=== PATIENT | male | born 1940 | race Caucasian/White ===

== ENCOUNTER 2018-12-27 10:07 | Inpatient (IN) ==
--- NOTE | 2018-12-27 10:21 | Emergency Department Note ---
Disposition Clinical Impression: NSTEMI (non-ST elevated myocardial infarction) Disposition: Admitted As Inpatient Condition: Good Referrals: Maurice Arreaga MD [Primary Care Provider] - Time of Disposition: 11:37 General Adult HPI - General Stated complaint: chest pain Time Seen by Provider: 12/27/18 10:09 Source: patient, family Mode of arrival: wheelchair Limitations: no limitations Nursing Notes Reviewed: Yes Vital Signs Reviewed: Yes - History of Present Illness HPI Narrative: Kenneth is a 78-year-old male that presents the emergency department with reports of left-sided chest pain. Patient describes this as a muscle spasm that last only a couple of seconds. Patient states that this is been intermittent. Patient states he is not having any active chest pain. Patient states that it feels like a fluttering that is painful. Patient states that he does have a prior history of coronary bypass. Patient states that this was performed by Dr. Larose in 2012. Patient states that he has been doing well and has not had any issues. Patient denies any shortness of breath, nausea, diaphoresis or any other symptoms other than the sensation of fluttering and pain in the left side of his chest. Pain Scale: 0 - Related Data Allergies Allergy/AdvReac Type Severity Reaction Status Date / Time No Known Allergies Allergy Verified 12/27/18 10:19 All systems ED: reviewed and negative except as stated. Constitutional: Denies: fever Cardiovascular: Reports: chest pain, palpitations Respiratory: Denies: dyspnea Gastrointestinal: Denies: abdominal pain, nausea, vomiting Genitourinary: Denies: dysuria, frequency Musculoskeletal: Denies: back pain, neck pain Neurological: Denies: weakness, numbness, paresthesias Past Medical History - Past Medical History Medical history: Reports: diabetes, hyperlipidemia, hypertension Psychiatric history: Reports: no psych history - Social History Smoking Status: Never smoker Alcohol use: Reports: none Drug use: Reports: none Physical Exam - General Limitations: no limitations General appearance: alert, in no apparent distress - Head Head exam: atraumatic, normocephalic - Eye Eye exam: Present: normal appearance, EOMI - Neck Neck exam: Present: normal inspection, full ROM, trachea midline - Respiratory Respiratory exam: Present: normal lung sounds bilaterally. Absent: respiratory distress, wheezes - Cardiovascular Cardiovascular exam: Present: regular rate, normal rhythm, normal heart sounds, +S1, +S2 - Abdominal Exam Abdominal exam: Present: soft, Non-Tender, normal bowel sounds - Neurological Exam Neurological exam: Present: alert, oriented X3 - Psychiatric Psychiatric exam: Present: normal affect, normal mood - Skin Skin exam: Present: warm, dry, intact Course Vital Signs Temperature 97.5 F L 12/27/18 10:13 Pulse Rate 67 12/27/18 10:13 Respiratory Rate 20 12/27/18 10:13 Blood Pressure 159/72 12/27/18 10:13 O2 Sat by Pulse Oximetry 96 12/27/18 10:13 Temperature 97.5 F L 12/27/18 10:13 Pulse Rate 67 12/27/18 10:13 Respiratory Rate 20 12/27/18 10:13 Blood Pressure 159/72 12/27/18 10:13 O2 Sat by Pulse Oximetry 96 12/27/18 10:13 Oxygen Delivery Oxygen Delivery Room Air Medical Decision Making - MDM Narrative Medical decision making narrative: Due the patient reporting chest pain and a fluttering sensation we will obtain basic laboratory testing as well as chest x-ray and EKG. patient's laboratory testing is relatively unremarkable. EKG did not show any acute ischemic changes. Chest x-ray did not show any acute cardial pulmonary process. However due to the patient's prior medical history the patient will need to be admitted to the hospital for further evaluation and management. Patient did receive aspirin and nitroglycerin. Consultation hospice Dr. Jones and she has accepted the patient to their service. Chest X-Ray 12/27/18 10:11 IMPRESSION: No acute cardiopulmonary disease D/ / Edinson Santos MD / Edinson Santos MD Interpreting Provider: Edinson Santos MD 1122 hrs.: Patient's troponins positive no chest pain at this time. Were negative and bring him into the hospital make sure he got aspirin and then admit. He is in agreement with plan. 1136 hrs.: Hospitalist as accepted patient for admission. - Medical Records Medical records reviewed: Yes I reviewed the patient's medical records. - Lab Data Lab results reviewed: Yes I reviewed the patient's lab results. Result diagrams: 12/27/18 10:25 12/27/18 10:25 Lab Results 12/27/18 12/27/18 12/27/18 Range/Units 10:25 10:25 10:25 WBC 9.1 (4.3-11.1) K/mcL RBC 5.04 (4.19-5.50) M/mcL Hgb 14.3 (12.9-16.9) g/dL Hct 43.7 (37.5-50.1) % MCV 86.7 (83.0-100.0) fL MCH 28.4 (28.0-33.3) pg MCHC 32.7 (31.6-35.5) g/dL RDW 14.2 (11.5-14.5) % Plt Count 374 (140-400) K/mcL MPV 9.4 (9.4-12.4) fL Immature Gran % 0.4 (0-4) % Seg Neutrophils % 63.4 % Lymphocytes % 22.7 % Monocytes % 8.3 % Eosinophils % 4.2 % Basophils % 1.0 % Neutrophils # 5.8 (1.6-8.9) K/mcL Lymphocytes # 2.1 (0.6-4.6) K/mcL Monocytes # 0.8 (0.0-1.3) K/mcL Eosinophils # 0.4 (0.0-0.6) K/mcL Basophils # 0.1 (0.0-0.2) K/mcL APTT 39.5 H (26.0-36.0) Seconds Sodium (136-145) mEq/L Potassium (3.5-5.1) mEq/L Chloride (98-107) mEq/L Carbon Dioxide (23-29) mEq/L BUN (8-23) mg/dL Creatinine (0.70-1.30) mg/dL Est GFR ( Amer) (> 60) Est GFR (Non-Af Amer) (> 60) BUN/Creatinine Ratio (6-26) Glucose (70-105) mg/dL Calculated Osmolality (280-300) Calcium (8.6-10.3) mg/dL Troponin I (< 0.04) ng/mL TSH 0.545 (0.340-5.600) mcIU/mL 12/27/18 Range/Units 10:25 WBC (4.3-11.1) K/mcL RBC (4.19-5.50) M/mcL Hgb (12.9-16.9) g/dL Hct (37.5-50.1) % MCV (83.0-100.0) fL MCH (28.0-33.3) pg MCHC (31.6-35.5) g/dL RDW (11.5-14.5) % Plt Count (140-400) K/mcL MPV (9.4-12.4) fL Immature Gran % (0-4) % Seg Neutrophils % % Lymphocytes % % Monocytes % % Eosinophils % % Basophils % % Neutrophils # (1.6-8.9) K/mcL Lymphocytes # (0.6-4.6) K/mcL Monocytes # (0.0-1.3) K/mcL Eosinophils # (0.0-0.6) K/mcL Basophils # (0.0-0.2) K/mcL APTT (26.0-36.0) Seconds Sodium 135 L (136-145) mEq/L Potassium 3.9 (3.5-5.1) mEq/L Chloride 102 (98-107) mEq/L Carbon Dioxide 24 (23-29) mEq/L BUN 15 (8-23) mg/dL Creatinine 1.14 (0.70-1.30) mg/dL Est GFR ( Amer) > 60 (> 60) Est GFR (Non-Af Amer) > 60 (> 60) BUN/Creatinine Ratio 13 (6-26) Glucose 216 H (70-105) mg/dL Calculated Osmolality 287 (280-300) Calcium 9.0 (8.6-10.3) mg/dL Troponin I 0.07 H* (< 0.04) ng/mL TSH (0.340-5.600) mcIU/mL - Radiology Data Radiology results reviewed: Yes I reviewed the patient's radiology results. Chest X-Ray 12/27/18 10:11 IMPRESSION: No acute cardiopulmonary disease D/ / Edinson Santos MD / Edinson Santos MD Interpreting Provider: Edinson Santos MD - EKG Data EKG #1 EKG attestation: Yes I reviewed and interpreted this EKG. EKG results narrative: EKG shows a sinus rhythm rate is 66 beats from it, WA interval 172, QRS duration 93, QTC of 417. No evidence of STEMI and EKG. This is compared to previous EKG on 04/06/13. Attestation Statement - Attestation Attestation: This documentation is done with the assistance of Dragon dictation. Despite efforts made to ensure accuracy, there may be inaccuracies in distribution transformer assembler or spelling and typographical errors. I examined this patient and my medical decision-making was reviewed with the Resident Physician. I agree with the documented findings, disposition and treatment plan as described except to the extent set forth below. Patient was seen and evaluated by Dr. Norwood, I agree with their evaluation and management plan, I supervised care the patient's stay. Patient presents today with chest pain which he describes as more muscle spasm. He does have a history of CAD. No pain at this time. He is resting comfortably. Renagel cardiac workup on him and then reassess. He is in agreement with plan. I reviewed the residents documentation and agree with the residents assessment and plan of care. I have personally had face to face time with the patient. ( Brief History, Brief Exam, and MDM) I personally supervised and was present for the darden/critical portions of the following procedures completed by the resident: EKG was interpreted by the resident under my supervision, I agree with their interpretation.
[2018-12-27 10:49] LABS: Basophils # 0.1 K/mcL (0.0-0.2); Eosinophils # 0.4 K/mcL (0.0-0.6); Eosinophils % 4.2 %; Hematocrit 43.7 % (37.5-50.1); Hemoglobin 14.3 g/dL (12.9-16.9); Immature Granulocytes % 0.4 % (0-4); Lymphocytes # 2.1 K/mcL (0.6-4.6); Lymphocytes % 22.7 %; Mean Corpuscular HGB Conc 32.7 g/dL (31.6-35.5); Mean Corpuscular Hemoglobin 28.4 pg (28.0-33.3); Mean Corpuscular Volume 86.7 fL (83.0-100.0); Mean Platelet Volume 9.4 fL (9.4-12.4); Monocytes # 0.8 K/mcL (0.0-1.3); Monocytes % 8.3 %; Neutrophils # 5.8 K/mcL (1.6-8.9); Platelet Count 374 K/mcL (140-400); Red Blood Count 5.04 M/mcL (4.19-5.50); Red Cell Distribution Width 14.2 % (11.5-14.5); Segmented Neutrophils % 63.4 %; White Blood Count 9.1 K/mcL (4.3-11.1)
[2018-12-27 11:08] LABS: Troponin I 0.07 ng/mL (< 0.04)
[2018-12-27 11:14] LABS: BUN/Creatinine Ratio 13 (6-26); Blood Urea Nitrogen 15 mg/dL (8-23); Carbon Dioxide 24 mEq/L (23-29); Chloride 102 mEq/L (98-107); Glucose 216 mg/dL (70-105); Osmolality,Calculated 287 (280-300); Potassium 3.9 mEq/L (3.5-5.1); Sodium 135 mEq/L (136-145); eGFR For African Americans > 60 (> 60); eGFR For Non-African Americans > 60 (> 60)
[2018-12-27] MEDS ORDERED: *HR* Heparin 5,000 UNIT/ML VIAL IVP PRN ×2 (12:46)
[2018-12-27] MEDS ORDERED: *HR* Heparin 5,000 UNIT/ML VIAL IVP ONE (12:46)
[2018-12-27] MEDS ORDERED: Heparin 25,000 UNIT/250 ML D5W 25,000 UNIT/250 ML IV.SOLN IVC SCH (13:00)
--- NOTE | 2018-12-27 13:03 | Internal Med History&Physical ---
Date of Encounter: 12/29/18 Time of Encounter: 13:03 Internal Medicine - H&P: HPI Chief complaint: CP History of present illness: Mr. Johnston is a 78 year old male With best medical history of diabetes, hyperlipidemia, hypertension and prior coronary bypass in 2012 who presented to the emergency department with intermittent left sided chest pain that felt as muscular spasm Analysis completely resolved. The patient denied shortness of breath, orthopnea, palpitation, paroxysmal nocturnal dyspnea, progressive or numbness of lower extremity edema, nausea, diaphoresis, vomiting, diarrhea , fever and chills. An EKG was obtained and revealed no ischemic ST-T wave changes, troponin was mildly elevated. I spoke with Dr. Nur who recommended to start heparin drip and admitted the patient for further evaluation. Past Med Surg Social Fam HX - Past Medical History Medical history: diabetes, hyperlipidemia, hypertension Psychiatric history: no psych history - Social History Smoking Status: Never smoker Alcohol use: none Drug use: none Internal Medicine - H&P: Meds Metoprolol [Lopressor] 25 mg PO BID 12/27/18 [History] Dulaglutide [Trulicity] 0.75 mg SQ TU 12/28/18 [History] Lisinopril-HCTZ 20-12.5 [Prinzide 20-12.5] 1 tab PO QAM 12/28/18 [History] Aspirin 81 mg PO DAILY tab.chew 12/29/18 [Rx] Atorvastatin [Lipitor] 80 mg PO HS #30 tablet 12/29/18 [Rx] Clopidogrel [Plavix] 75 mg PO DAILY #30 tablet 12/29/18 [Rx] Allergy/AdvReac Type Severity Reaction Status Date / Time No Known Allergies Allergy Verified 12/28/18 09:32 All Systems PM: A 10-system review of systems was performed and is negative for pertinent findings except as documented above in the HPI. - Constitutional Vitals: Temp Pulse Resp BP Pulse Ox 97.5 F L 67 20 159/72 96 12/27/18 10:13 12/27/18 10:13 12/27/18 10:13 12/27/18 10:13 12/27/18 10:13 General appearance: Present: A&O X 3 Exam: . - Head Head exam: Present: atraumatic, normocephalic - Neck Neck exam general surgery: Present: supple, trachea midline. Absent: lymphadenopathy - Respiratory Respiratory exam: Present: CTAB. Absent: accessory muscle use, rales, rhonchi, wheezes - Cardiovascular Cardiovascular exam: Present: RRR, +S1, +S2. Absent: diastolic murmur, gallop, rubs, systolic murmur - GI/Abdominal GI/Abdominal exam: Present: normal bowel sounds, soft, no peritoneal signs. Absent: distended, tenderness - Extremities Exam Extremities exam: Present: warm, radial pulses palpable and symmetrical. Absent: calf tenderness, cyanotic, pedal edema Internal Med - H&P Results - Labs CBC & Chem 7: 12/28/18 04:35 12/29/18 06:19 Labs: Short CBC 12/27/18 Range/Units 10:25 WBC 9.1 (4.3-11.1) K/mcL Hgb 14.3 (12.9-16.9) g/dL Hct 43.7 (37.5-50.1) % Plt Count 374 (140-400) K/mcL Neutrophils # 5.8 (1.6-8.9) K/mcL BMP 12/27/18 10:25 Sodium 135 L Potassium 3.9 Chloride 102 Carbon Dioxide 24 BUN 15 Creatinine 1.14 Glucose 216 H Calcium 9.0 Cardiac Enzymes 12/27/18 Range/Units 10:25 Troponin I 0.07 H* (< 0.04) ng/mL - Impressions ITS Impressions Chest X-Ray 12/27/18 10:11 IMPRESSION: No acute cardiopulmonary disease D/ / Edinson Santos MD / Edinson Santos MD Interpreting Provider: Edinson Santos MD - Assessment and Plan (1) NSTEMI (non-ST elevated myocardial infarction) Status: Resolved Assessment and plan: Atypical Chest pain in the setting of history of coronary bypass, rule out coronary artery disease, troponin is mildly elevated, I spoke with Dr. Nur who suggested to start the patient heparin drip for possible NSTEMI and they will see the patient in consult DD *Muskuloskeletal CP - myofascial strain, costochondritis *GERD *Esophageal spasm *Pericarditis - unlikely *Pneumonia - no infiltrate on CXR PLAN: - cardiac enzymes x 2 q 8 hr - EKG now and in AM - ASA - O2 by NC to keep SpO2 greater than 92% - UA - Urine toxic screen - CBCD, BMP in AM - Fasting lipids - 2D Echo - Cardiology consult (2) Hypertension Status: Chronic Assessment and plan: We will continue home medication and continue to monitor blood pressure while inpatient and underwent chest regimen accordingly Qualifiers: Hypertension type: essential hypertension Qualified Code(s): I10 - Essential (primary) hypertension (3) Diabetes mellitus Status: Chronic Assessment and plan: The patient currently is not on any antidiabetic medication, blood glucose is elevated, start the patient on insulin sliding scale and obtain hemoglobin A1c. Qualifiers: Diabetes mellitus type: type 2 Diabetes mellitus intermediate project manager insulin use: without chcf use Diabetes mellitus complication status: with other specified complication Qualified Code(s): E11.69 - Type 2 diabetes mellitus with other specified complication (4) Hyperlipidemia Status: Acute Assessment and plan: We will continue home statin and obtain fasting lipid profile in a.m. Qualifiers: Hyperlipidemia type: unspecified Qualified Code(s): E78.5 - Hyperlipidemia, unspecified - Time Spent With Patient Total time spent is greater than 50% in coordination of care (as documented) at patient's floor/unit and/or counseling patient:
[2018-12-27 14:12] LABS: INR 1.1
[2018-12-27] MEDS ORDERED: Ondansetron 4 MG/2 ML VIAL IVP PRN (15:11)
[2018-12-27] MEDS ORDERED: Naloxone 0.4 MG/ML INJ IVP PRN (15:11)
[2018-12-28 05:13] LABS: Basophils # 0.1 K/mcL (0.0-0.2); Eosinophils # 0.5 K/mcL (0.0-0.6); Eosinophils % 5.6 %; Hematocrit 42.1 % (37.5-50.1); Hemoglobin 14.1 g/dL (12.9-16.9); Immature Granulocytes % 0.7 % (0-4); Lymphocytes # 2.1 K/mcL (0.6-4.6); Lymphocytes % 24.3 %; Mean Corpuscular HGB Conc 33.5 g/dL (31.6-35.5); Mean Corpuscular Hemoglobin 28.5 pg (28.0-33.3); Mean Corpuscular Volume 85.1 fL (83.0-100.0); Mean Platelet Volume 9.4 fL (9.4-12.4); Monocytes # 0.8 K/mcL (0.0-1.3); Monocytes % 9.2 %; Neutrophils # 5.2 K/mcL (1.6-8.9); Platelet Count 335 K/mcL (140-400); Red Blood Count 4.95 M/mcL (4.19-5.50); Red Cell Distribution Width 14.1 % (11.5-14.5); Segmented Neutrophils % 59.2 %; White Blood Count 8.7 K/mcL (4.3-11.1)
[2018-12-28 05:20] LABS: INR 1.1; Prothrombin Time 12.6 Seconds (9.4-12.1)
[2018-12-28 05:24] LABS: Activated Partial Thrombo Time 95.5 Seconds (26.0-36.0)
[2018-12-28 05:31] LABS: Alanine Aminotransferase 17 Units/L (7-52); Albumin 3.8 g/dL (3.5-5.7); Albumin/Globulin Ratio 1.5 (1.1-2.2); Alkaline Phosphatase 52 Units/L (34-104); Aspartate Amino Transferase 13 Units/L (13-39); BUN/Creatinine Ratio 12 (6-26); Bilirubin,Total 0.4 mg/dL (0.3-1.0); Blood Urea Nitrogen 13 mg/dL (8-23); Calcium 8.9 mg/dL (8.6-10.3); Carbon Dioxide 26 mEq/L (23-29); Chloride 102 mEq/L (98-107); Glucose 145 mg/dL (70-105); Magnesium 1.8 mg/dL (1.6-2.6); Osmolality,Calculated 285 (280-300); Phosphorous 3.1 mg/dL (2.7-4.5); Potassium 3.8 mEq/L (3.5-5.1); Sodium 136 mEq/L (136-145); Total Protein 6.4 g/dL (6.4-8.9); eGFR For African Americans > 60 (> 60); eGFR For Non-African Americans > 60 (> 60)
[2018-12-28 05:32] LABS: Chol/HDL Ratio 4.9 (0-4.9); Cholesterol 158 mg/dL (< 200); Globulin 2.6 g/dL (2.4-3.5); HDL Cholesterol 32 mg/dL (40-59); LDL Cholesterol,Calculated 75 mg/dL (0-99); Triglycerides 256 mg/dL (< 150)
[2018-12-28] MEDS ORDERED: Dextrose Gel 15 GM/37.5 ML TUBE PO PRN ×2 (06:18)
[2018-12-28] MEDS ORDERED: D5% in Water 1,000 ML IVC PRN (06:18)
[2018-12-28] MEDS ORDERED: *HR* Dextrose 50 % in Water (Syg) 50 ML SYRINGE IVP PRN (06:18)
--- NOTE | 2018-12-28 07:45 | Internal Med Progress Note ---
Hospitalist Progress Note - Encounter Date of Encounter: 12/28/18 Time of Encounter: 08:10 - Subjective Interval History: awake, pleasant, rn at bedside. no chest pain, pressure, sob, n/v or diaphoresis. He will have left heart cath today. He denies any concerns or needs at this time - Exam Vitals: Temp Pulse Resp BP Pulse Ox 98.7 F 81 14 142/74 92 12/28/18 05:17 12/28/18 05:17 12/28/18 05:17 12/28/18 05:17 12/28/18 05:17 Exam: gen- alert, awake,appears stated age cv- reg rate and rhythm, normal s1,s2, no murmurs appreciated, no le edema lungs- ctabl, no wheezing, rhonchi or crackles, normal resp effort abd- soft, non tender, non distended, + bs neuro- AAOx3, CN grossly intact - Assessment and Plan (1) NSTEMI (non-ST elevated myocardial infarction) Current Visit: Yes Status: Acute - Summary of Assessment and Plan Summary of Assessment and Plan: Mr Johnston is 78 M pmhx CAD s/p cABG 2012, HTN, HLD, DM who presented with chest pain. He is admitted for NSTEMI NSTEMI CAD s/p CABG Trop elevation 0.06s EKG noted to have no acute ischemic changes Echo EF 60%, Indeterminant DD, Mild to Mod AR, otherwise mild valvular disease Do not suspect PE as etiology as no tachycardia, tachypnea or hypoxia -cont asa + statin + BB + acei -cont hep gtt -appreciate cards input, for [facility] today DM- SSI, accu checks, rpn hypoglycemics HTN- meds as above -HLD- cont statin vte ppx hep gtt Internal Medicine: Result - Labs CBC & Chem 7: 12/28/18 04:35 12/28/18 04:35 Labs: Short CBC 12/27/18 12/28/18 Range/Units 10:25 04:35 WBC 9.1 8.7 (4.3-11.1) K/mcL Hgb 14.3 14.1 (12.9-16.9) g/dL Hct 43.7 42.1 (37.5-50.1) % Plt Count 374 335 (140-400) K/mcL Neutrophils # 5.8 5.2 (1.6-8.9) K/mcL BMP 12/27/18 12/28/18 10:25 04:35 Sodium 135 L 136 Potassium 3.9 3.8 Chloride 102 102 Carbon Dioxide 24 26 BUN 15 13 Creatinine 1.14 1.07 Glucose 216 H 145 H Calcium 9.0 8.9 Cardiac Enzymes 12/27/18 12/27/18 12/27/18 Range/Units 10:25 16:26 20:17 Troponin I 0.07 H* 0.07 H* 0.06 H* (< 0.04) ng/mL 12/28/18 Range/Units 04:35 Troponin I 0.06 H* (< 0.04) ng/mL Liver Function 12/28/18 Range/Units 04:35 Total Bilirubin 0.4 (0.3-1.0) mg/dL AST 13 (13-39) Units/L ALT 17 (7-52) Units/L Alkaline Phosphatase 52 (34-104) Units/L Albumin 3.8 (3.5-5.7) g/dL - ABG Interpretation ABG results: PT/INR, D-dimer PT 12.6 Seconds (9.4-12.1) H 12/28/18 04:35 - Impressions Impressions Chest X-Ray 12/27/18 10:11 IMPRESSION: No acute cardiopulmonary disease D/ / Edinson Santos MD / Edinson Santos MD Interpreting Provider: Edinson Santos MD Echocardiogram 12/27/18 14:10 Impressions: LVEF 60%. Indeterminate diastolic function. Normal right ventricular structure and function. Mild mitral regurgitation. Mild-moderate aortic regurgitation. Mild tricuspid regurgitation. Mild pulmonic regurgitation. No pulmonary hypertension. Left Ventricular Wall Motion: Rest Echo Findings All wall segments showed normal motion. Findings: Study Quality * Technically adequate exam. ECG Findings * Normal sinus rhythm. Left Ventricle * LVEF 60%. * Normal LV chamber size, wall thickness and function. * Indeterminate diastolic function. Right Ventricle * Normal right ventricular structure and function. Left Atrium * Mildly dilated left atrium. Right Atrium * Normal right atrial size. Mitral Valve * Normal mitral valve structure. * No mitral stenosis. * Mild mitral regurgitation. Aortic Valve * Trileaflet aortic valve. * Mildly thickened aortic valve leaflets. * Mild-moderate aortic regurgitation. Tricuspid Valve * Normal tricuspid valve structure. * Mild tricuspid regurgitation. Pulmonic Valve * Pulmonic valve is not well visualized. * No pulmonic stenosis. * Mild pulmonic regurgitation. Pulmonary Artery * Pulmonary artery not well visualized. Aorta * Normally sized aortic root. * Proximal ascending thoracic aorta not optimally visualized. Pericardium * There is no pericardial effusion present. Interatrial Septum * Interatrial septum not well evaluated. IVC * The IVC is not well evaluated. Consult Discharge Plan - Plan Referrals: Maurice Arreaga MD [Primary Care Provider] -
[2018-12-28] MEDS: Insulin LISPRO 300 UNITS/3 ML VIAL SQ SCH ×3 (07:49→16:25)
[2018-12-28] MEDS: Lisinopril 20 MG TABLET PO SCH (08:35)
--- NOTE | 2018-12-28 10:27 | Cardiology Consult Note ---
Date of Encounter: 12/28/18 Time of Encounter: 10:24 Assessment and Plan (1) NSTEMI (non-ST elevated myocardial infarction) Current Visit: Yes Status: Acute Presented to the ED with intermittent left sided chest pain that felt as muscular spasm, brief in duration with no alleviating or exacerbating factors. Pt denies any associated symptoms. Reports he had 3 episodes--one Thursday, Thursday and Thursday. Troponins 0.07, 0.07, 0.06, 0.06. No ischemic ECG changes. No other underlying cause able to be identified for troponin elevation. TTE EF 60%, mild MR, mild-moderate AR, mild TR and OK. On heparin gtt, statin and BB. Will start ASA. Discussed and reviewed with Dr. Nur. Recommend [facility]. R/B/A discussed. Pt agrees to proceed. [facility] today. (2) CAD (coronary artery disease) Current Visit: Yes Status: Acute Hx CABG in 2012 (DIETRICH-LAD, SVG-OM1 and OM3, SVG to PDA). ASA, Statin, BB. Plan as above. Qualifiers: Coronary Disease-Associated Artery/Lesion type: [place] artery [place] vs. transplanted heart: [place] heart Associated angina: angina presence unspecified Qualified Code(s): I25.10 - Atherosclerotic heart disease of [place] coronary artery without angina pectoris Discussion w patient/family: The assessment and plan as outlined above was discussed with the patient and/or family members who expressed understanding and agreement. All questions were answered. Thank you for involving us in the care of your patient. Please call with any questions. I will discuss all the above with Dr. Nur and make changes as necessary. History of Present Illness Consult date: 12/28/18 Consult reason: chest pain, elevated troponin Chief complaint: chest pain History of present illness: Mr. Johnston is a 78 year old male with PMH of diabetes, HLD, HTN and CAD s/p CABG in 2012 who presented to the ED with intermittent left sided chest pain that felt as muscular spasm, brief in duration with no alleviating or exacerbating factors. Pt denies any associated symptoms. Reports he had 3 episodes--one Thursday, Thursday and Thursday. Troponins 0.07, 0.07, 0.06, 0.06. Cardiology consulted for further recs. TTE EF 60%, mild MR, mild-moderate AR, mild TR and OK. Past Med Surg Social Fam HX - Past Medical History Medical history: coronary artery disease, diabetes, hyperlipidemia, hypertension Psychiatric history: no psych history - Past Surgical History Surgical History: coronary bypass (CABG) - Social History Smoking Status: Never smoker Alcohol use: none Drug use: none Medications and Allergies Aspirin [Adult Aspirin] 81 mg PO QAM 12/27/18 [History] Metoprolol [Lopressor] 25 mg PO BID 12/27/18 [History] Pravastatin Sodium [Pravachol] 20 mg PO QPM 12/27/18 [History] Dulaglutide [Trulicity] 0.75 mg SQ TU 12/28/18 [History] Lisinopril-HCTZ 20-12.5 [Prinzide 20-12.5] 1 tab PO QAM 12/28/18 [History] Allergy/AdvReac Type Severity Reaction Status Date / Time No Known Allergies Allergy Verified 12/28/18 09:32 All Systems Review: The remainder of the systems were reviewed and are negative - Cardiovascular Cardiovascular: as per HPI, chest pain at rest Physical Examination Vital Signs, Last 4 Hours Temp Pulse Resp BP Pulse Ox 12/28/18 07:54 98.1 F 75 12 144/83 92 Vital Signs Temp Pulse Resp BP Pulse Ox 12/28/18 07:54 98.1 F 75 12 144/83 92 12/28/18 05:17 98.7 F 81 14 142/74 92 12/27/18 22:14 98.7 F 68 16 132/64 95 12/27/18 16:29 98.5 F 71 18 147/70 98 12/27/18 14:39 98.1 F 65 18 143/76 97 12/27/18 13:41 64 14 141/71 97 Intake and Output 12/27/18 12/28/18 12/28/18 23:59 07:59 15:59 Intake Total 565 / 565 141.7 / 141.7 Output Total 0 / 0 Balance 565 / 565 141.7 / 141.7 Intake: IV Fluids 81.7 / 81.7 Heparin 25,000 UNIT/250 ML D5W 81.7 / 81.7 25,000 unit In 250 ml @ 11 UNIT /KG/HR 9.67 mls/hr IVC .Q24H [facility] Rx#:[id number] Oral 480 / 480 60 / 60 Output: Urine 0 / 0 Other: Meal Dinner npo Percent of Meal Consumed 100% # Voids 2 Weight 83.5 kg Blood Glucose* 126 127 Patient Weight 12/28/18 23:59 Weight 83.5 kg General: Conversant, No Apparent Distress HEENT: Atraumatic, Normocephaly, Mucus Membranes Moist Neck: No JVD, Normal carotid pulses Cardiac: Reg Rate and Rhythm, Normal S1 and S2, No Murmur Lungs: Normal Breath Sounds, No Wheeze, Rales, Rhonchi Neuro: Alert and responsive, No focal deficits noted Abdomen: Soft, Non-Tender Skin: No rashes noted on visualized skin Musculoskeletal: No Chest Wall Tenderness Extremities: No Clubbing, No Cyanosis, No Edema, Normal Pulses Results 12/28/18 04:35 12/28/18 04:35 Lab Results 12/27/18 12/27/18 12/27/18 10:25 10:25 10:25 WBC 9.1 Hgb 14.3 Hct 43.7 Plt Count 374 INR APTT 39.5 H Sodium Potassium Chloride Carbon Dioxide BUN Creatinine Glucose Calcium Magnesium Total Bilirubin AST ALT Alkaline Phosphatase Troponin I TSH 0.545 12/27/18 12/27/18 12/27/18 10:25 13:38 16:26 WBC Hgb Hct Plt Count INR 1.1 APTT Sodium 135 L Potassium 3.9 Chloride 102 Carbon Dioxide 24 BUN 15 Creatinine 1.14 Glucose 216 H Calcium 9.0 Magnesium Total Bilirubin AST ALT Alkaline Phosphatase Troponin I 0.07 H* 0.07 H* TSH 12/27/18 12/28/18 12/28/18 20:17 04:35 04:35 WBC 8.7 Hgb 14.1 Hct 42.1 Plt Count 335 INR APTT Sodium Potassium Chloride Carbon Dioxide BUN Creatinine Glucose Calcium Magnesium Total Bilirubin AST ALT Alkaline Phosphatase Troponin I 0.06 H* 0.06 H* TSH 12/28/18 12/28/18 04:35 04:35 WBC Hgb Hct Plt Count INR 1.1 APTT 95.5 H D Sodium 136 Potassium 3.8 Chloride 102 Carbon Dioxide 26 BUN 13 Creatinine 1.07 Glucose 145 H Calcium 8.9 Magnesium 1.8 Total Bilirubin 0.4 AST 13 ALT 17 Alkaline Phosphatase 52 Troponin I TSH Short CBC 12/28/18 12/27/18 Range/Units 04:35 10:25 WBC 8.7 9.1 (4.3-11.1) K/mcL Hgb 14.1 14.3 (12.9-16.9) g/dL Hct 42.1 43.7 (37.5-50.1) % Plt Count 335 374 (140-400) K/mcL Neutrophils # 5.2 5.8 (1.6-8.9) K/mcL BMP 12/28/18 12/27/18 Range/Units 04:35 10:25 Sodium 136 135 L (136-145) mEq/L Potassium 3.8 3.9 (3.5-5.1) mEq/L Chloride 102 102 (98-107) mEq/L Carbon Dioxide 26 24 (23-29) mEq/L BUN 13 15 (8-23) mg/dL Creatinine 1.07 1.14 (0.70-1.30) mg/dL Glucose 145 H 216 H (70-105) mg/dL Calcium 8.9 9.0 (8.6-10.3) mg/dL Cardiac Enzymes 12/28/18 12/27/18 12/27/18 Range/Units 04:35 20:17 16:26 Troponin I 0.06 H* 0.06 H* 0.07 H* (< 0.04) ng/mL 12/27/18 Range/Units 10:25 Troponin I 0.07 H* (< 0.04) ng/mL Liver Function 12/28/18 Range/Units 04:35 Total Bilirubin 0.4 (0.3-1.0) mg/dL AST 13 (13-39) Units/L ALT 17 (7-52) Units/L Alkaline Phosphatase 52 (34-104) Units/L Albumin 3.8 (3.5-5.7) g/dL Impressions Chest X-Ray 12/27/18 10:11 IMPRESSION: No acute cardiopulmonary disease D/ / Edinson Santos MD / Edinson Santos MD Interpreting Provider: Edinson Santos MD Echocardiogram 12/27/18 14:10 Impressions: LVEF 60%. Indeterminate diastolic function. Normal right ventricular structure and function. Mild mitral regurgitation. Mild-moderate aortic regurgitation. Mild tricuspid regurgitation. Mild pulmonic regurgitation. No pulmonary hypertension. Left Ventricular Wall Motion: Rest Echo Findings All wall segments showed normal motion. Findings: Study Quality * Technically adequate exam. ECG Findings * Normal sinus rhythm. Left Ventricle * LVEF 60%. * Normal LV chamber size, wall thickness and function. * Indeterminate diastolic function. Right Ventricle * Normal right ventricular structure and function. Left Atrium * Mildly dilated left atrium. Right Atrium * Normal right atrial size. Mitral Valve * Normal mitral valve structure. * No mitral stenosis. * Mild mitral regurgitation. Aortic Valve * Trileaflet aortic valve. * Mildly thickened aortic valve leaflets. * Mild-moderate aortic regurgitation. Tricuspid Valve * Normal tricuspid valve structure. * Mild tricuspid regurgitation. Pulmonic Valve * Pulmonic valve is not well visualized. * No pulmonic stenosis. * Mild pulmonic regurgitation. Pulmonary Artery * Pulmonary artery not well visualized. Aorta * Normally sized aortic root. * Proximal ascending thoracic aorta not optimally visualized. Pericardium * There is no pericardial effusion present. Interatrial Septum * Interatrial septum not well evaluated. IVC * The IVC is not well evaluated. Active Medications Dextrose/Water (Dextrose 50% (Syg)) 25 ml IVP AD PRN PRN Reason: Hypoglycemia Stop: 06/29/19 06:19 Glucagon (Glucagen) 1 mg IM ONCE PRN PRN Reason: Hypoglycemia Stop: 06/29/19 06:19 Glucose (Gluctose) 15 gm PO ONCE PRN PRN Reason: Hypoglycemia Stop: 06/29/19 06:19 Glucose (Gluctose) 30 gm PO ONCE PRN PRN Reason: Hypoglycemia Stop: 06/29/19 06:19 Heparin Sodium (Porcine) (Heparin) 4,000 unit IVP Q6HR PRN PRN Reason: SEE COMMENTS Stop: 06/28/19 12:47 Heparin Sodium (Porcine) (Heparin) 2,000 unit IVP Q6H PRN PRN Reason: SEE COMMENTS Stop: 06/28/19 12:47 Last Admin: 12/27/18 22:35 Dose: 2,000 unit Documented by: Heparin Sodium/Dextrose (Heparin 25,000 Unit/250 Ml D5w) 25,000 unit in 250 mls @ 9.67 mls/hr IVC .Q24H [facility]; Protocol Stop: 06/28/19 13:01 Last Titration: 12/28/18 05:41 Dose: 12.97 unit/kg/hr, 11.4 mls/hr Documented by: Dextrose (Dextrose 5%) 1,000 mls @ 100 mls/hr IVC .Q10H PRN PRN Reason: HYPOGLYCEMIA Stop: 06/29/19 06:19 Insulin Human Lispro (Humalog) 0 units SQ HS [facility]; Protocol Stop: 06/29/19 21:01 Insulin Human Lispro (Humalog) 0 units SQ TIDAC [facility]; Protocol Stop: 06/29/19 07:31 Last Admin: 12/28/18 07:49 Dose: Not Given Documented by: Lisinopril (Zestril) 20 mg PO DAILY [facility]; Protocol Stop: 06/29/19 09:01 Last Admin: 12/28/18 08:35 Dose: 20 mg Documented by: Metoprolol Tartrate (Lopressor) 25 mg PO BID [facility] Stop: 06/29/19 09:01 Last Admin: 12/28/18 08:35 Dose: 25 mg Documented by: Naloxone HCl (Narcan) 0.4 mg IVP Q2MPRN PRN PRN Reason: SEE COMMENTS Stop: 06/28/19 15:12 Ondansetron HCl (Zofran) 4 mg IVP Q8HR PRN PRN Reason: Nausea And Vomiting Stop: 06/28/19 15:12 Simvastatin (Zocor) 10 mg PO DAILY [facility] Stop: 06/29/19 09:01 Last Admin: 12/28/18 08:35 Dose: 10 mg Documented by: - Imaging and Cardiology Echo: report reviewed - EKG Interpretation EKG results cardiology: personally reviewed, other (12 hr tele AVG HR 70, SR, no significant pauses or arrhythmias noted.) Consult Discharge Plan - Plan Referrals: Maurice Arreaga MD [Primary Care Provider] -
[2018-12-28] MEDS ORDERED: Heparin 1,000 UNITS/500 mL 500 ML ONE (10:48)
[2018-12-28] MEDS ORDERED: *HR* Heparin 10,000 UNIT/10 ML VIAL ONE (10:48)
[2018-12-28] MEDS ORDERED: 0.9 % Sodium Chloride 1,000 ML ONE ×2 (10:48)
[2018-12-28] MEDS ORDERED: ISOVUE-370 200 ML INFUS..BTL ONE ×2 (10:48→12:00)
[2018-12-28] MEDS ORDERED: Nitroglycerin 1,000 MCG/10 ML VIAL IV ONE ×2 (10:48→10:54)
--- NOTE | 2018-12-28 11:04 | Pre-Sedation Evaluation ---
Pre-sedation evaluation - Pre-sedation checklist Date of procedure: 12/28/18 Procedure: [facility] Recent Vitals: Last Vital Signs Temp 98.1 F 12/28/18 07:54 Pulse 75 12/28/18 07:54 Resp 12 12/28/18 07:54 BP 144/83 12/28/18 07:54 Pulse Ox 92 12/28/18 07:54 H&P (including ROS) documented in medical record: Yes Previous reaction to sedatives/anesthetics: No Dietary Status: NPO after Midnight Airway Assessment: Patient can open mouth completely, TMJ function normal, Micrognathia (under-bite, receding chin) absent, Neck with adequate range of mot ion Dentition: No loose teeth or bridges Possible difficult airway: No ASA Classification *see protocol: CLASS II-Mild systemic disease Plan of Care: Pt appropriate candidate for procedure/moderate/conscious sedation, Risks/benefits of procedure/sedation discussed w/ patient/family Cardiac Registry (Cardio Only) - Functional Capacity Functional Capacity: < 4 METS - Clincal Frailty Scale Clinical Frailty Scale: Vulnerable
[2018-12-28] MEDS ORDERED: *HR* FentaNYL (PF) 100 MCG/2 ML VIAL ONE (11:33)
[2018-12-28] MEDS ORDERED: *HR* Midazolam HCl 2 MG/2 ML VIAL ONE (11:33)
[2018-12-28] MEDS ORDERED: *HR* Bivalirudin 250 MG VIAL IVC ONE (11:50)
[2018-12-28] MEDS ORDERED: *HR* Ticagrelor 90 MG TABLET ONE (12:05)
[2018-12-28] MEDS ORDERED: Nitroglycerin 0.4 MG TAB.SUBL SL PRN (12:42)
--- NOTE | 2018-12-28 13:46 | Electrocardiograph Report ---
[facility] [employer] [facility] Test Date: 2018-12-27 Pat Name: Kennedy Johnston Department: [id number] Room: 2NE29 Gender: M [employer]: : 1940 Requested By: Emeka Wasserman Order Number: [id number] Reading MD: Carmelo Clay Measurements Intervals [place] Rate: 66 P: 30 TX: 172 QRS: 7 QRSD: 93 T: 57 QT: 398 QTc: 417 Interpretive Statements Sinus rhythm Electronically Signed On 12-28-2018 13:44:56 EDT by Carmelo Clay
[2018-12-28] MEDS: *HR* Heparin 5,000 UNIT/ML VIAL SQ SCH ×2 (16:25→21:02)
[2018-12-28] MEDS: Aspirin 81 MG TAB.CHEW PO SCH (16:25)
--- NOTE | 2018-12-28 16:28 | Invasive Diagnostic Lab Proc ---
Name: Kennedy Johnston Date of Study: 12/28/2018 Date: 1940 Ht: 66.9in Medical Record#: [id number] Age: 78 Wt: 185.19lb Gender: Male BSA: 1.96 Order #: [id number] BMI: 29.07 Physicians Procedure Physician: Luz Stern MD, FACC Referring MD: Referring MD: Staff Name Position Time In Surinder Humphries RN Cardiology Fellow 10:56 AM Mary Parks RT (R) Scrub 10:56 AM Luz Bob RT (R) Scrub 10:56 AM Lizette Winslow RN Monitor 11:12 AM Procedures Performed Procedure L HRT ART/GRFT ANGIO PRQ CARD IRVING STENT W/ANGIO 1 VSL Pre-Procedure Checklist Informed consent is complete signed and on chart. H&P is on chart. ID band is on and ID verified with patient. Patient NPO for procedure The procedure was described for the patient and questions were answered. ECG is on chart. Plan of Care Patient will tolerate the procedure without complications. Adequate level of comfort will be maintained. Hemodynamics will remain stable Patient will recover from procedure without complications. Respiratory function will be maintained. Cardiac rhythm will remain stable. Patient temperature will be maintained. Patient and/or family have verbalized understanding of the procedure. Patient Education Chief Complaint/Reason for Test: Cardiac Cath Developmental Category: Geriatric (65+ years) Developmentally Appropriate for Age: Yes Learning Barriers: None Education Needs: Procedure Education Method: Verbal Information Taught: Cardiac Cath Educational Evaluation: Able to repeat information Intravenous Access Time IV Size Location DC'd Fluid/Drip Rate Units RN 11:34 AM 20g 1 07/02" Patent On Arrival Rt Antecubital 0.9NaCl 30 ml/hr Surinder Humphries RN Allergies No Known Allergies Vital Signs Time BP (mmHg) HR (bpm) O2 Sat. RR (bpm) LOC 11:28 AM / % 5 = Fully awake and oriented or at pre-proc level 11:28 AM / % 4 = Oriented but drowsy 11:43 AM / % 4 = Oriented but drowsy 11:58 AM / % 4 = Oriented but drowsy 11:34 AM 161 / 83 65 97 % 30 11:39 AM 124 / 66 63 96 % 14 11:44 AM 124 / 68 62 95 % 13 11:49 AM 128 / 63 63 96 % 20 11:54 AM 120 / 67 68 96 % 12 11:59 AM 119 / 65 61 96 % 13 12:04 PM 122 / 63 61 97 % 13 12:09 PM 128 / 69 61 93 % 11 12:14 PM 118 / 62 61 94 % 15 12:29 PM 122 / 80 58 97 % 16 12:50 PM 126 / 74 58 97 % 14 5 = Fully awake and oriented or at pre-proc level 01:00 PM 137 / 75 60 99 % 15 5 = Fully awake and oriented or at pre-proc level 01:15 PM 153 / 80 63 99 % 16 5 = Fully awake and oriented or at pre-proc level 01:36 PM 146 / 81 61 99 % 16 5 = Fully awake and oriented or at pre-proc level 01:47 PM 143 / 79 62 98 % 12 5 = Fully awake and oriented or at pre-proc level 02:00 PM 152 / 82 64 100 % 14 5 = Fully awake and oriented or at pre-proc level 02:15 PM 131 / 72 63 98 % 16 5 = Fully awake and oriented or at pre-proc level 02:30 PM 131 / 75 65 99 % 15 5 = Fully awake and oriented or at pre-proc level 02:50 PM 152 / 80 64 97 % 15 5 = Fully awake and oriented or at pre-proc level 03:00 PM 135 / 73 65 97 % 18 5 = Fully awake and oriented or at pre-proc level 03:15 PM 156 / 76 65 99 % 18 5 = Fully awake and oriented or at pre-proc level 03:30 PM 175 / 93 68 99 % 18 5 = Fully awake and oriented or at pre-proc level 03:45 PM 168 / 83 68 97 % 18 5 = Fully awake and oriented or at pre-proc level Procedural Medications Time Medication Dose Units Method Given By 11:27 AM Oxygen 2 L/min nasal cannula Surinder Humphries RN 11:37 AM Versed 2 mg Intravenous Surinder Humphries RN 11:37 AM Fentanyl 50 mcg Intravenous Surinder Humphries RN 11:41 AM Lidocaine 2% 20 ml Subcutaneous Luz Stern MD, FACC 11:58 AM Angiomax 0.75mg/kg bolus: 13 ml Intravenous Surinder Humphries RN 12:09 PM Nitroglycerin 200 mcg Intracoronary Luz Stern MD, FACC 12:10 PM Nitroglycerin 100 mcg Intracoronary Luz Stern MD, FACC 11:59 AM Angiomax 1.75mg/kg/hr: 30 ml/hr Intravenous Surinder Humphries RN 12:18 PM Brilinta 180 mg Orally Surinder Humphries RN ASA Classification: CLASS II- Mild systemic disease (i.e. well-controlled diabetes, hypertension, asthma, cigarette smoking) [place] Score Preprocedure Postprocedure Activity 2- Moves 4 extremities sustained head lift Activity 2- Moves 4 extremities sustained head lift Circulation 2- SBP +/= 20 points of pre-anesthetic level Circulation 2- SBP +/= 20 points of pre-anesthetic level Consciousness 2- Awake and alert oriented x 3 Consciousness 2- Awake and alert oriented x 3 O2 Saturation 2- Able to maintain O2 satruation of 92% on room air O2 Saturation 2- Able to maintain O2 satruation of 92% on room air Respiratory 2- Able to deep breathe and cough well Respiratory 2- Able to deep breathe and cough well Total Score 10 Total Score 10 Contrast Agent: Isovue Diagnostic Contrast: 135 ml Total Contrast: 135 ml Fluoro Dose: 58 mGy Procedure Log Time Note Enter By 10:56 AM Surinder Humphries RN Position: Cardiology Fellow Time in: 10:56 [facility] 10:56 AM Mary Parks RT (R) Position: Scrub Time in: 10:56 [facility] 10:56 AM Luz Bob RT (R) Position: Scrub Time in: 10:56 [facility] 11:10 AM 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 well-controlled diabetes, hypertension, asthma, cigarette smoking) [facility] 11:27 AM Physician arrived 11:27 [facility] 11:27 AM Meet and greet completed 11:27 AM Sign in performed according to hospital policy. Informed consent was obtained. [facility] 11:27 AM Procedure start 11:27 [facility] 11:27 AM Patient charges- Angio tray pack, Navilyst 3mm J, Pulse Oximetry and ACIST tubing and transducer 11:27 AM Case Delayed No mm 11:27 AM CathStat 11: AM Time: : Oxygen on at 2 L/min per nasal cannula [facility] : AM Time: Patient comfortable and pain free: Yes : AM Time: :LOC: 5 = Fully awake and oriented or at pre-proc level [facility] 11:33 AM Vitals capture started with the following parameters, Patient=Adult, Interval=5 min, Initial Oczwbrwv=367 mmHg, Deflation Rate=3 mmHg, Cuff placed on Right Arm 11:33 AM Recorded ECG: HR=64 Condition=Condition 1 11:33 AM Hair removed from procedure site in procedure lab using clippers. Bilateral groin prepped with Chloraprep by Mary Parks), then patient was draped. Skin intact. 11:34 AM HR=65 bpm, EHYH=526/83 mmhg, SpO2=97.0 %, Resp=30 B/min 11:37 AM Time: 11:37 Versed 2 mg Intravenous [facility] AM Time: 11:37 Fentanyl 50 mcg Intravenous [facility] 11:37 AM Time out was performed according to hospital policy. Conscious sedation and anesthesia was achieved (see medication log with in this report above) 11:38 AM Pressure channel 1 zero failed. 11:38 AM Pressure channel 1 zero failed. 11:38 AM Pressure channel 1 zeroed. 11:39 AM HR=63 bpm, RBRW=960/66 mmhg, SpO2=96.0 %, Resp=14 B/min 11: AM Time: : 20 ml Lidocaine 2% to right groin Subcutaneous Given by Luz Stern MD, [facility] 11:41 AM Coronary Dominance: right [facility] 11:42 AM Access obtained by percutaneous puncture. 5Fr 10cm Terumo Hobbs sheath placed in right Femoral artery. [id number] [facility] 11:42 AM 0.035 145cm Navilyst 3mmJ wire [id number] [facility] 11:42 AM 5Fr FR 4 catheter inserted over the wire [facility] 11:43 AM Time: Patient comfortable and pain free: Yes tsoummers 11:43 AM Time: :28LOC: 4 = Oriented but drowsy tsoummers 11:43 AM wire removed tsoummers 11:44 AM HR=62 bpm, DPSU=984/68 mmhg, SpO2=95.0 %, Resp=13 B/min, EtCO2=35 mmHg 11:44 AM RCA angiography performed in multiple views. tsoummers 11:44 AM Recorded Pressure: Ao, HR=63, Condition=Condition 1 (Aorta) Ao 97/63/79 11:45 AM Recorded Pressure: Ao, HR=61, Condition=Condition 1 (Aorta) Ao 97/60/79 11:45 AM SVG to the 1st OM and 3rd OM angio performed in multiple views. tsoummers 11:46 AM 0.035 260cm Navilyst 3mmJ wire [id number] [facility] 11:[facility] AM [facility]ter [facility] 11:47 AM 5Fr FL 4 catheter inserted over the wire [facility] 11:47 AM wire removed tsoummers 11:48 AM Recorded Pressure: Ao, HR=63, Condition=Condition 1 (Aorta) Ao 92/44/65 11:49 AM HR=63 bpm, LLAH=624/63 mmhg, SpO2=96.0 %, Resp=20 B/min 11:49 AM LCA angiography performed in multiple views. tsoummers 11:50 AM [facility] 11[facility]52 AM 5Fr IM catheter inserted over the wire [id number] [facility] 11:52 AM Left KWADWO to the LAD angio performed in multiple views. tsoummers 11:52 AM Recorded Pressure: Ao, HR=73, Condition=Condition 1 (Aorta) Ao 95/65/80 11:53 AM [facility]ter [facility] 11:53 AM 5Fr Pigtail catheter inserted over the wire [facility] 11:54 AM HR=68 bpm, SPQZ=115/67 mmhg, SpO2=96.0 %, Resp=12 B/min 11:54 AM Catheter crossed the aortic valve and was selectively placed in the left ventricle. Pressures recorded on pullback for left heart catheterization. tsoummers 11:54 AM Lesion found in Mid RCA. Pre Stenosis: 99 Pre CAITLIN Flow: 1: Slow Penetration without Perfusion tsoummers 11:55 AM Bolus angiogram of left Ventricle complete: 8 ml/sec for a total of 24 mls [facility] 11:55 AM Pressure channel 1 zeroed. 11:55 AM Right Coronary, Right Posterior Descending Arteries with Right Posterolateral and Acute Marginal branches with 99 % stenosis. If graft is supplying this area, 0 % stenosis [facility] 11:55 AM Recorded Pressure: LV, HR=65, Condition=Condition 1 (Left Ventricle) LV 111/-10/5 11:56 AM Recorded Pressure: LV, Ao, HR=66, Condition=Condition 1 (Left Ventricle) LV 93/23/29, (Aorta) Ao 90/57/76 11:56 AM Catheter removed [facility] 11:56 AM Inflation device was opened. [facility] 11:56 AM Sheath exchanged for a 6 Fr 11 cm MEEP Caridad sheath [id number] [facility] 11:58 AM 6Fr IM Runway guide catheter was used to cannulate the PCI vessel successfully. reused? No [facility] 11:58 AM Time: 11:58 Angiomax 0.75mg/kg bolus: 13 ml Intravenous Given by Surinder Humphries RN [facility] 11:58 AM Time: 11:43LOC: 4 = Oriented but drowsy [facility] 11:58 AM Time: 11:43 Patient comfortable and pain free: Yes [facility] 11:59 AM HR=61 bpm, CKPZ=958/65 mmhg, SpO2=96.0 %, Resp=13 B/min 11:59 AM Time: 11:59 Angiomax 1.75mg/kg/hr: 30 ml/hr Intravenous Given by Surinder Humphries RN [facility] 12:00 PM .014 Prowater 180cm guide wire across target lesion- successful. reused? No [facility] 12:01 PM Recorded Pressure: Ao, HR=61, Condition=Condition 1 (Aorta) Ao 105/52/74 12:02 PM 2.0 mm x 12 mm Emerge Monorail balloon across target lesion- successful. reused? No [facility] 12:03 PM Balloon inflated @ 8 shaista for 30 seconds [facility] 12:04 PM HR=61 bpm, PVLC=654/63 mmhg, SpO2=97.0 %, Resp=13 B/min 12:04 PM Balloon catheter removed intact. [facility] 12:05 PM 2.5mm x 20mm Synergy drug-eluting stent across target lesion- successful Lot #[id number] [facility] 12:07 PM Stent deployed @ 12 shaista for 30 seconds [facility] 12:08 PM Stent balloon reinflated @ 18 shaista for 16 seconds [facility] 12:09 PM HR=61 bpm, BVRJ=466/69 mmhg, SpO2=93.0 %, Resp=11 B/min 12:09 PM Time: 12:09 Nitroglycerin 200 mcg Intracoronary Given by Luz Stern MD, [facility] 12:10 PM Stent delivery system removed intact. [facility] 12:11 PM Time: 12:10 Nitroglycerin 100 mcg Intracoronary Given by Luz Stern MD, [facility] 12:11 PM Recorded Pressure: Ao, HR=61, Condition=Condition 1 (Aorta) Ao 70/33/45 12:12 PM Guide wire removed intact. [facility] 12:12 PM Guide catheter removed intact. [facility] 12:13 PM Time: 11:58 Patient comfortable and pain free: Yes [facility] 12:13 PM Time: 11:58LOC: 4 = Oriented but drowsy [facility] 12:14 PM HR=61 bpm, UZNJ=839/62 mmhg, SpO2=94.0 %, Resp=15 B/min 12:14 PM Bolus angiogram of right Femoral complete: 2 ml/sec for a total of 4 mls [facility] 12:14 PM Procedure completed at 12:14 12/28/2018 [facility] 12:19 PM Time: 12:18 Brilinta 180 mg Orally Given by Surinder Humphries RN [facility] 12:20 PM Did you address CAITLIN flow and Dominance? YesCoronary Dominance: right [facility] 12:21 PM Sign out completed: Radiation Dose 425 mGy, 57.5 Gy/cm2 Fluoro Time: 10.1 Isovue 370 - 200ml contrast 135 ml given by Luz Stern MD, [facility]. Complications: None. 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 Sedation minutes 43. Cardiac Rehab Consult needed: Yes. Confirmed administered medications: Yes [facility] 12:21 PM Isovue 370 - 200ml,2 Bottle(s) used. :21 PM Sheath left in place to be pulled on floor/holding area 12:21 PM Estimated Blood Loss: less than 20cc mm 12:21 PM Post ECG NSR mm 12:21 PM Post Blood Pressure 118/69 tsmm 12:21 PM Information taught Cardiac Cath and PCI 12:21 PM Education needs Procedure, Plan of Care, and Responsibilities of Patient in Care 12:21 PM Learning barriers :None 12:21 PM Education Methods Verbal 12:21 PM Education evaluation Able to repeat information [facility] 12:22 PM Site status No bleeding/ No Hematoma - Rt Groin as reported by Luz Bob RT (R) at 12:21 [facility] 12:22 PM Opsite applied 12:22 PM Report given to Syd GREENE Pt taken to Holding room [facility]. [facility] 12[facility] PM Plavix, Effient or Brilinta given Yes 12:23 PM Delay to floor Bed availability tsmm 12:23 PM Patient [facility] of room: 12[facility] 12[facility] PM Family placed in consult room. mm 12:23 PM Lesion found in Proximal LAD. Pre Stenosis: 100 Pre CAITLIN Flow: tsoummers 12:23 PM Lesion found in 1st Diagonal. Pre Stenosis: 99 Pre CAITLIN Flow: tsoummers 12:23 PM Lesion found in Proximal Circumflex. Pre Stenosis: 40 Pre CAITLIN Flow: tsoummers 12:23 PM Lesion found in Mid Circumflex. Pre Stenosis: 80 Pre CAITLIN Flow: tsoummers 12:23 PM Lesion found in 1st Marginal. Pre Stenosis: 99 Pre CAITLIN Flow: tsoummers 12:23 PM Lesion found in 3rd Marginal. Pre Stenosis: 99 Pre CAITLIN Flow: tsoummers 12:24 PM Proximal Left Anterior Descending Coronary Artery with 100% stenosis. If graft is supplying this territory, 0 % stenosis. tsoummers 12:24 PM Mid/Distal Left Anterior Descending Coronary Artery and diagonal branches with 99% stenosis. If graft is supplying this area, 0 % stenosis tsoummers 12:24 PM Circumflex, Obtuse Marginal, Left Posterior Descending, and Left Posterolateral Coronary Arteries with 99 % stenosis. If graft is supplying this area, 0 % stenosis [email or web address] 01:00 PM Angiomax infusion complete cedwards 02:13 PM Family at bedside. [email or web address] 03:00 PM Arterial sheath pulled using manual compression and V+ Pad for 35 minutes by Syd Damon RN mprater 03:21 PM Report called to Monika on 2NE mprater 03:35 PM Arterial sheath pulled, V+Pad closure device used and was Successful . Hemostaasis achieved mprater 03:47 PM Patient transfered to [facility] mprater Complications Complication None Hemodynamics Pressures Site Systolic/A Wave Diastolic/V Wave Mean AO 97 63 79 AO 97 60 79 AO 92 44 65 AO 95 65 80 LV 111 -10 5 LV 93 23 29 AO 90 57 76 AO 105 52 74 AO 70 33 45 Post Procedure Information Blood Pressure: 118/69 mmHg Rhythm: NSR Post procedural instructions were given Site Checks Time Location Status Staff Sheath In? Note 12:21 PM Rt Groin No bleeding/ No Hematoma Luz Bob RT (R) Rt Groin No bleeding/ No Hematoma Syd Damon RN 12:50 PM Rt Groin No bleeding/ No Hematoma Surinder Humphries RN Yes 01:01 PM Rt Groin No bleeding/ No Hematoma Syd Damon RN Yes 01:15 PM Rt Groin No bleeding/ No Hematoma Leslie Flores RN Yes 01:36 PM Rt Groin No bleeding/ No Hematoma Syd Damon RN Yes 01:46 PM Rt Groin No bleeding/ No Hematoma Teetee Nunes RT (R) 02:00 PM Rt Groin No bleeding/ No Hematoma Lizette Winslow RN Yes 02:15 PM Rt Groin No bleeding/ No Hematoma Leslie Flores RN Yes 02:30 PM Rt Groin No bleeding/ No Hematoma Teetee Nunes RT (R) 02:45 PM Rt Groin No bleeding/ No Hematoma Syd Damon RN 03:00 PM Rt Groin No bleeding/ No Hematoma Syd Damon RN 03:15 PM Rt Groin No bleeding/ No Hematoma Syd Damon RN 03:30 PM Rt Groin No bleeding/ No Hematoma Syd Damon RN 03:45 PM Rt Groin No bleeding/ No Hematoma Syd Damon RN Pulses Time Site Pre-Procedure Post-Procedure Note 12/28/2018 10:54:00 AM Bilateral radial 2+ 12/28/2018 10:54:00 AM Bilateral DP & PT 2+ 12/28/2018 12:28:00 PM Bilateral DP & PT 2+ 12/28/2018 12:28:00 PM Bilateral radial 1+ 12/28/2018 1:47:00 PM Bilateral DP & PT 2+ 12/28/2018 2:00:00 PM Bilateral DP & PT 2+ 12/28/2018 2:30:00 PM Bilateral DP & PT 2+ 12/28/2018 3:30:00 PM Bilateral DP & PT 2+ 12/28/2018 3:45:00 PM Bilateral DP & PT 2+ Updated by Leslie Flores RN on 12/28/2018 4:22:14 PM Leslie Flores RN electronically signed on 12/28/2018 4:22:52 PM with status of Final
[2018-12-28] MEDS ORDERED: Melatonin 3 MG TABLET PO PRN (18:47)
[2018-12-28] MEDS ORDERED: Insulin LISPRO 300 UNITS/3 ML VIAL SQ SCH (21:00)
[2018-12-29] MEDS: *HR* Heparin 5,000 UNIT/ML VIAL SQ SCH (05:42)
[2018-12-29 07:02] LABS: BUN/Creatinine Ratio 13 (6-26); Blood Urea Nitrogen 15 mg/dL (8-23); Calcium 9.5 mg/dL (8.6-10.3); Carbon Dioxide 27 mEq/L (23-29); Chloride 100 mEq/L (98-107); Glucose 136 mg/dL (70-105); Osmolality,Calculated 287 (280-300); Potassium 3.9 mEq/L (3.5-5.1); Sodium 137 mEq/L (136-145); eGFR For African Americans > 60 (> 60); eGFR For Non-African Americans > 60 (> 60)
[2018-12-29 07:41] VITALS: BP 137/79
[2018-12-29] MEDS: Aspirin 81 MG TAB.CHEW PO SCH (09:22)
[2018-12-29] MEDS: Insulin LISPRO 300 UNITS/3 ML VIAL SQ SCH (09:22)
[2018-12-29] MEDS: Lisinopril 20 MG TABLET PO SCH (09:22)
--- NOTE | 2018-12-29 09:27 | Cardiology Progress Note ---
Date of Encounter: 12/29/18 Time of Encounter: 09:25 Assessment and Plan (1) NSTEMI (non-ST elevated myocardial infarction) Current Visit: Yes Status: Acute Presented to the ED with intermittent left sided chest pain that felt as muscular spasm, brief in duration with no alleviating or exacerbating factors. Troponins 0.07, 0.07, 0.06, 0.06. No ischemic ECG changes. TTE EF 60%, mild MR, mild-moderate AR, mild TR and OR. S/P LHC yesterday--severe 3V CAD. Patient had successful PTCA/Drug-Eluting Stent placement in the mid RCA. S/P CABG 3 of 4 patent bypass grafts. DAPT (ASA and Plavix) uninterrupted x 1 year. Pt verbalizes understanding. Continue Statin, BB. Right femoral access site healing well. No bleeding or hematoma. Mild ecchymosis. Restrictions discussed. Cardiology signing off. Reconsult PRN. Will coordinate outpt follow-up in 1 week . (2) CAD (coronary artery disease) Current Visit: Yes Status: Acute Hx CABG in 2012 (DIETRICH-LAD, SVG-OM1 and OM3, SVG to PDA). S/P PCI as above. ASA, Plavix, Statin, BB. Qualifiers: Coronary Disease-Associated Artery/Lesion type: [place] artery [place] vs. transplanted heart: [place] heart Associated angina: angina presence unspecified Qualified Code(s): I25.10 - Atherosclerotic heart disease of [place] coronary artery without angina pectoris Discussion w patient/family: The assessment and plan as outlined above was discussed with the patient and/or family members who expressed understanding and agreement. All questions were answered. Thank you for involving us in the care of your patient. Please call with any questions. I will discuss all the above with Dr. Nur and make changes as necessary. Subjective Principal diagnosis: NSTEMI Interval history: No acute complaints this AM. Denies chest pain. Objective Vital Signs, Last 4 Hours Temp Pulse Resp BP Pulse Ox 12/29/18 07:38 97.3 F L 74 16 137/79 96 Vital Signs Temp Pulse Resp BP Pulse Ox 12/29/18 07:38 97.3 F L 74 16 137/79 96 12/29/18 04:34 98.1 F 70 12 132/70 96 12/28/18 23:18 98.1 F 73 12 125/59 93 12/28/18 20:57 98.7 F 77 16 131/70 94 12/28/18 17:30 97.8 F 80 157/72 12/28/18 17:00 97.9 F 79 160/78 12/28/18 16:45 97.9 F 80 162/80 12/28/18 16:30 98.0 F 82 16 162/85 12/28/18 16:15 98.1 F 60 16 152/86 12/28/18 16:03 98.0 F 58 162/95 12/28/18 16:00 97.9 F 68 14 151/85 98 Intake and Output 12/28/18 12/29/18 12/29/18 23:59 07:59 15:59 Intake Total 563.3 / 705.0 120 / 120 Output Total 400 / 400 Balance 163.3 / 305.0 120 / 120 Intake: IV Fluids 83.3 / 165.0 Heparin 25,000 UNIT/250 ML D5W 83.3 / 165.0 25,000 unit In 250 ml @ 11 UNIT /KG/HR 9.67 mls/hr IVC .Q24H [facility] Rx#:[id number] Oral 480 / 540 120 / 120 Output: Urine 400 / 400 Other: Meal Dinner Percent of Meal Consumed 100% # Voids 1 1 Weight 83.8 kg Blood Glucose* 174 148 Patient Weight 12/29/18 23:59 Weight 83.8 kg General: Conversant, No Apparent Distress HEENT: Atraumatic, Normocephaly, Mucus Membranes Moist Neck: No JVD, Normal carotid pulses Cardiac: Reg Rate and Rhythm, Normal S1 and S2, No Murmur Lungs: Normal Breath Sounds, No Wheeze, Rales, Rhonchi Neuro: Alert and responsive, No focal deficits noted Abdomen: Soft, Non-Tender Skin: Other (right femoral access site healing well. No bleeding or hematoma. Mild ecchymosis noted.) Results 12/28/18 04:35 12/29/18 06:19 Lab Results 12/29/18 06:19 Sodium 137 Potassium 3.9 Chloride 100 Carbon Dioxide 27 BUN 15 Creatinine 1.13 Glucose 136 H Calcium 9.5 Magnesium 2.0 BMP 12/29/18 Range/Units 06:19 Sodium 137 (136-145) mEq/L Potassium 3.9 (3.5-5.1) mEq/L Chloride 100 (98-107) mEq/L Carbon Dioxide 27 (23-29) mEq/L BUN 15 (8-23) mg/dL Creatinine 1.13 (0.70-1.30) mg/dL Glucose 136 H (70-105) mg/dL Calcium 9.5 (8.6-10.3) mg/dL Active Medications Aspirin (Aspirin) 81 mg PO DAILY [facility] Stop: 06/29/19 11:01 Last Admin: 12/29/18 09:22 Dose: 81 mg Documented by: Atorvastatin Calcium (Lipitor) 80 mg PO [facility] Stop: 06/29/19 21:01 Last Admin: 12/28/18 19:50 Dose: 80 mg Documented by: Clopidogrel Bisulfate (Plavix) 75 mg PO DAILY [facility] Stop: 06/30/19 09:01 Last Admin: 12/29/18 09:22 Dose: 75 mg Documented by: Dextrose/Water (Dextrose 50% (Syg)) 25 ml IVP AD PRN PRN Reason: Hypoglycemia Stop: 06/29/19 06:19 Glucagon (Glucagen) 1 mg IM ONCE PRN PRN Reason: Hypoglycemia Stop: 06/29/19 06:19 Glucose (Gluctose) 15 gm PO ONCE PRN PRN Reason: Hypoglycemia Stop: 06/29/19 06:19 Glucose (Gluctose) 30 gm PO ONCE PRN PRN Reason: Hypoglycemia Stop: 06/29/19 06:19 Heparin Sodium (Porcine) (Heparin) 5,000 unit SQ Q8HCO [facility] Stop: 06/29/19 14:01 Last Admin: 12/29/18 05:42 Dose: 5,000 unit Documented by: Dextrose (Dextrose 5%) 1,000 mls @ 100 mls/hr IVC .Q10H PRN PRN Reason: HYPOGLYCEMIA Stop: 06/29/19 06:19 Insulin Human Lispro (Humalog) 0 units SQ [facility]; Protocol Stop: 06/29/19 21:01 Last Admin: 12/28/18 21:00 Dose: Not Given Documented by: Insulin Human Lispro (Humalog) 0 units SQ TIDAC [facility]; Protocol Stop: 06/29/19 07:31 Last Admin: 12/29/18 09:22 Dose: Not Given Documented by: Lisinopril (Zestril) 20 mg PO DAILY [facility]; Protocol Stop: 06/29/19 09:01 Last Admin: 12/29/18 09:22 Dose: 20 mg Documented by: Melatonin (Melatonin) 3 mg PO HS PRN PRN Reason: Insomnia Stop: 06/29/19 18:48 Last Admin: 12/29/18 01:59 Dose: 3 mg Documented by: Metoprolol Tartrate (Lopressor) 25 mg PO BID [facility] Stop: 06/29/19 09:01 Last Admin: 12/29/18 09:21 Dose: 25 mg Documented by: Naloxone HCl (Narcan) 0.4 mg IVP Q2MPRN PRN PRN Reason: SEE COMMENTS Stop: 06/28/19 15:12 Nitroglycerin (Nitroglycerin) 0.4 mg SL Q5MPRN PRN PRN Reason: Chest Pain Stop: 06/29/19 12:43 Ondansetron HCl (Zofran) 4 mg IVP Q8HR PRN PRN Reason: Nausea And Vomiting Stop: 06/28/19 15:12 - Imaging and Cardiology Echo: report reviewed Cardiac cath: report reviewed - EKG Interpretation EKG results cardiology: other (12 hr tele AVG HR 70, SR) Consult Discharge Plan - Plan Additional Instructions: RISK FACTORS: STOP SMOKING: If you smoke, STOP. Smoking or tobacco use significantly increases your risk of heart disease because nicotine causes the arteries to narrow or constrict. It also causes fats to stick to the artery. Your chances of having a heart attack are greatly increased if you continue to smoke. For more information, call the education line for smoking cessation 3-790-HUGXGMW EAT A LOW FAT/CHOLESTEROL/SODIUM DIET: This diet may help reduce your chances of having a heart attack. LIFTING: Avoid lifting anything more than 10 pounds for 5-7 days Prior to straining, laughing, sneezing and/or coughing, apply manual pressure directly over insertion site. ACTIVITY: You may walk or climb stairs as tolerated You can resume sexual activity as tolerated In general, you are encouraged to engage in a minimum of 30 minutes or more of moderate intensity physical activity, such as brisk walking, daily or at least 3-4 times weekly BATHING Do not submerge the site into water (bath tub, hot tub, swimming pool) for 1 week. This can be a source for infection into the blood stream. You may shower after 24 hours SITE CARE: After 24 hours, you may remove the dressing and leave the site open to air. Keep the site clean and dry. Clean gently and pat dry. You can expect bruising and tenderness that gradually resolve within a week or two. Return to work as instructed per your physician Resume driving as instructed per physician Keep all scheduled follow up appointments Resume medications as instructed IMPORTANT: If prescribed a Platelet Aggregation Inhibitor such as, Plavix, Brilinta or Effient: Duration of therapy is minimum one year These medications are often used in combination with Aspirin in prevention of future heart attacks Never discontinue unless consult with your Nursing Care Partner STROKE (CVA) Risk factors for a stroke are: Age, cigarette smoking, diabetes, excessive alcohol consumption, family history, high blood pressure, overweight, physical inactivity, prior stroke, heart attack, diagnosis of carotid artery stenosis or other artery disease. Warning signs: Sudden numbness or weakness of the face, arm or leg; especially on one side of the body, sudden confusion, trouble speaking or understanding, sudden trouble seeing in one or both eyes, sudden trouble walking, dizziness, loss of balance or coordination, sudden severe headache with no cause. Call 911 or go to the Emergency Room. CONGESTIVE HEART FAILURE: If you have been diagnosed with Congestive Heart Failure (CHF) and your symptoms return, make an appointment with your physician Weigh yourself daily. Notify your physician if you have a weight gain of two or more pounds in one day or five or more pounds in one week. If you experience any difficulty breathing, please call 911 BLEEDING: Although the risk of bleeding is minimal, it can happen. If you have any bleeding from the site, apply firm pressure above the puncture site for 10-15 minutes. If the bleeding does not stop, continue manual pressure and call 911 Contact your physician if: You develop a fever greater than 101 degrees Fahrenheit Your site becomes reddened or has any drainage You have an increase in pain or burning at the site or if a large knot forms at the site. If you experience chest pain, shortness of breath, dizziness, or extreme tiredness, stop the activity and rest. Please notify your physicians office if you experience any of these symptoms and they are not relieved by rest please call 911! Referrals: Maurice Arreaga MD [Primary Care Provider] -
--- NOTE | 2018-12-29 10:12 | Discharge Summary ---
Orders not resulted at time of discharge: Pending orders 12/28/18 12:42 ECG 12 lead ECG [ECG] Stat 12/29/18 06:00 ECG 12 lead ECG [ECG] AM 0600 Date of Encounter: 12/29/18 Time of Encounter: 10:00 - Discharge Diagnosis (1) NSTEMI (non-ST elevated myocardial infarction) Priority: Primary Status: Resolved (2) CAD (coronary artery disease) Priority: Secondary Status: Chronic Qualifiers: Coronary Disease-Associated Artery/Lesion type: [place] artery [place] vs. transplanted heart: [place] heart Associated angina: angina presence unspecified Qualified Code(s): I25.10 - Atherosclerotic heart disease of [place] coronary artery without angina pectoris (3) Hyperlipidemia Priority: Secondary Status: Acute Qualifiers: Hyperlipidemia type: unspecified Qualified Code(s): E78.5 - Hyperlipidemia, unspecified (4) Diabetes mellitus Priority: Secondary Status: Chronic Qualifiers: Diabetes mellitus type: type 2 Diabetes mellitus care home insulin use: without ferry terminal agent use Diabetes mellitus complication status: with other specified complication Qualified Code(s): E11.69 - Type 2 diabetes mellitus with other specified complication Hospital course: Mr. Johnston is a 78 year old male with history of CAD status post CABG in 2012, HTN, HLD, DM who came into the hospital with chest pain. Patient was treated f or NSTEMI with heparin drip followed by cardiology team who did a left heart catheterization on 12/28. His LHC was significant for multivessel disease with IRVING stent deployed to RCA, his EF was 55%. His heparin drip was discontinued and patient was placed on aspirin and Plavix. Today, patient is hemodynamically stable. Chest pain-free. He would be discharged home in stable condition. 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 Discharge discussed with: patient - Time Spent with Patient Total time spent providing and/or coordinating discharge services: 32 minutes - Discharge Medications Prescriptions: New Atorvastatin [Lipitor] 80 mg PO HS #30 tablet Clopidogrel [Plavix] 75 mg PO DAILY #30 tablet Lisinopril [Zestril] 20 mg PO DAILY tablet Aspirin 81 mg PO DAILY tab.chew Continued Metoprolol [Lopressor] 25 mg PO BID Dulaglutide [Trulicity] 0.75 mg SQ TU Lisinopril-HCTZ 20-12.5 [Prinzide 20-12.5] 1 tab PO QAM Discontinued Pravastatin Sodium [Pravachol] 20 mg PO QPM Aspirin [Adult Aspirin] 81 mg PO QAM Home Medications: Metoprolol [Lopressor] 25 mg PO BID 12/27/18 [History] Dulaglutide [Trulicity] 0.75 mg SQ TU 12/28/18 [History] Lisinopril-HCTZ 20-12.5 [Prinzide 20-12.5] 1 tab PO QAM 12/28/18 [History] Aspirin 81 mg PO DAILY tab.chew 12/29/18 [Rx] Atorvastatin [Lipitor] 80 mg PO HS #30 tablet 12/29/18 [Rx] Clopidogrel [Plavix] 75 mg PO DAILY #30 tablet 12/29/18 [Rx] Lisinopril [Zestril] 20 mg PO DAILY tablet 12/29/18 [Rx] Allergies/Adverse Reactions: Allergy/AdvReac Type Severity Reaction Status Date / Time No Known Allergies Allergy Verified 12/28/18 09:32 Date of admission: 12/27/18 15:34 Primary care physician: Maurice Arreaga MD Consults: 12/27/18 12:47 Consult to Cardiology [CONS] Routine Comment: Consulting Provider: Cardiology Padmini Reason for Consult: nstemi Time Notified: 12:48 Call Completed: Yes 12/28/18 12:42 Consult to Cardiac Rehabilitation-Phase1 [CONS] Routine Comment: Reason for Consult: post op PCI Call Completed: Yes - Constitutional Vitals: Temp Pulse Resp BP Pulse Ox 97.3 F L 74 16 137/79 96 12/29/18 07:38 12/29/18 07:38 12/29/18 07:38 12/29/18 07:38 12/29/18 07:38 General appearance: Present: A&O X 3 Exam: see below - Head Head exam: Present: atraumatic, normocephalic - ENT ENT exam: Present: normal exam - Respiratory Respiratory exam: Present: CTAB - Cardiovascular Cardiovascular exam: Present: RRR, +S1, +S2. Absent: diastolic murmur, gallop, rubs, systolic murmur - GI/Abdominal GI/Abdominal exam: Present: normal bowel sounds, soft, no peritoneal signs. Absent: distended, tenderness - Extremities Exam Extremities exam: Present: full ROM, normal capillary refill, warm, radial pulses palpable and symmetrical. Absent: calf tenderness, cyanotic, pedal edema - Neurological Exam Neurological exam: Present: CN II-XII intact, oriented X3, no focal deficits. Absent: pronater drift, facial droop, speech deficit - Psychiatric Psychiatric exam: Present: normal affect, normal mood - Patient Status Disposition: Home, Self-Care Condition: Good Functional capacity at discharge: independent ambulation Overall status at discharge: patient is back to baseline - Discharge Instructions Instructions: Diabetes Mellitus Type 2 in Adults (DC), Chronic Hypertension (DC) Follow Up With: Maurice Arreaga MD [Primary Care Provider] - Forms: ED Satisfaction Letter Additional Instructions: RISK FACTORS: STOP SMOKING: If you smoke, STOP. Smoking or tobacco use significantly increases your risk of heart disease because nicotine causes the arteries to narrow or constrict. It also causes fats to stick to the artery. Your chances of having a heart attack are greatly increased if you continue to smoke. For more information, call the education line for smoking cessation 8-095-FQYJJKO EAT A LOW FAT/CHOLESTEROL/SODIUM DIET: This diet may help reduce your chances of having a heart attack. LIFTING: Avoid lifting anything more than 10 pounds for 5-7 days Prior to straining, laughing, sneezing and/or coughing, apply manual pressure directly over insertion site. ACTIVITY: You may walk or climb stairs as tolerated You can resume sexual activity as tolerated In general, you are encouraged to engage in a minimum of 30 minutes or more of moderate intensity physical activity, such as brisk walking, daily or at least 3-4 times weekly BATHING Do not submerge the site into water (bath tub, hot tub, swimming pool) for 1 week. This can be a source for infection into the blood stream. You may shower after 24 hours SITE CARE: After 24 hours, you may remove the dressing and leave the site open to air. Keep the site clean and dry. Clean gently and pat dry. You can expect bruising and tenderness that gradually resolve within a week or two. Return to work as instructed per your physician Resume driving as instructed per physician Keep all scheduled follow up appointments Resume medications as instructed IMPORTANT: If prescribed a Platelet Aggregation Inhibitor such as, Plavix, Brilinta or Effient: Duration of therapy is minimum one year These medications are often used in combination with Aspirin in prevention of future heart attacks Never discontinue unless consult with your Coordinate Measuring Machine Operator STROKE (CVA) Risk factors for a stroke are: Age, cigarette smoking, diabetes, excessive alcohol consumption, family history, high blood pressure, overweight, physical inactivity, prior stroke, heart attack, diagnosis of carotid artery stenosis or other artery disease. Warning signs: Sudden numbness or weakness of the face, arm or leg; especially on one side of the body, sudden confusion, trouble speaking or understanding, sudden trouble seeing in one or both eyes, sudden trouble walking, dizziness, loss of balance or coordination, sudden severe headache with no cause. Call 911 or go to the Emergency Room. CONGESTIVE HEART FAILURE: If you have been diagnosed with Congestive Heart Failure (CHF) and your symptoms return, make an appointment with your physician Weigh yourself daily. Notify your physician if you have a weight gain of two or more pounds in one day or five or more pounds in one week. If you experience any difficulty breathing, please call 911 BLEEDING: Although the risk of bleeding is minimal, it can happen. If you have any bleeding from the site, apply firm pressure above the puncture site for 10-15 minutes. If the bleeding does not stop, continue manual pressure and call 911 Contact your physician if: You develop a fever greater than 101 degrees Fahrenheit Your site becomes reddened or has any drainage You have an increase in pain or burning at the site or if a large knot forms at the site. If you experience chest pain, shortness of breath, dizziness, or extreme tiredness, stop the activity and rest. Please notify your physicians office if you experience any of these symptoms and they are not relieved by rest please call 911! - Diet and Activity Activity: resume usual activities as tolerated Diet: diabetic diet, low fat, low cholesterol, low salt diet
== END 2018-12-29 13:33 | disposition home or self-care (01) | DRG 247 ==
LOC: EMEROOARM 10:07 → 2NENU 10:07 → SUATTDRO 15:34
PROVIDERS: ADMIT Internal Medicine Nephrology; ATTEND Internal Medicine

== ENCOUNTER 2019-04-09 14:58 | Observation (INO) ==
[2019-04-09] MEDS ORDERED: Aspirin 81 MG TAB.CHEW PO STA (15:22)
[2019-04-09 15:41] LABS: Basophils # 0.1 K/mcL (0.0-0.2); Basophils % 1.1 %; Eosinophils # 0.3 K/mcL (0.0-0.6); Eosinophils % 3.3 %; Hematocrit 40.3 % (37.5-50.1); Hemoglobin 13.7 g/dL (12.9-16.9); Immature Granulocytes % 1.2 % (0-4); Lymphocytes # 1.9 K/mcL (0.6-4.6); Lymphocytes % 22.2 %; Mean Corpuscular Hemoglobin 28.8 pg (28.0-33.3); Mean Corpuscular Volume 84.8 fL (83.0-100.0); Mean Platelet Volume 9.2 fL (9.4-12.4); Monocytes # 0.7 K/mcL (0.0-1.3); Monocytes % 8.7 %; Neutrophils # 5.3 K/mcL (1.6-8.9); Platelet Count 302 K/mcL (140-400); Red Blood Count 4.75 M/mcL (4.19-5.50); Segmented Neutrophils % 63.5 %; White Blood Count 8.4 K/mcL (4.3-11.1)
[2019-04-09 16:03] LABS: BUN/Creatinine Ratio 12 (6-26); Blood Urea Nitrogen 13 mg/dL (8-23); Calcium 8.7 mg/dL (8.6-10.3); Carbon Dioxide 26 mEq/L (23-29); Chloride 103 mEq/L (98-107); Glucose 162 mg/dL (70-105); Osmolality,Calculated 286 (280-300); Potassium 3.7 mEq/L (3.5-5.1); Sodium 136 mEq/L (136-145); Troponin I < 0.03 ng/mL (< 0.04); eGFR For African Americans > 60 (> 60); eGFR For Non-African Americans > 60 (> 60)
[2019-04-09] MEDS ORDERED: Acetaminophen 325 MG TABLET PO PRN (18:09)
[2019-04-09] MEDS ORDERED: Naloxone 0.4 MG/ML INJ IVP PRN (18:09)
[2019-04-09] MEDS ORDERED: Ondansetron 4 MG/2 ML VIAL IVP PRN (18:09)
[2019-04-09] MEDS ORDERED: Dextrose Gel 15 GM/37.5 ML TUBE PO PRN ×2 (18:21)
[2019-04-09] MEDS ORDERED: D5% in Water 1,000 ML IVC PRN (18:21)
[2019-04-09] MEDS ORDERED: *HR* Dextrose 50 % in Water (Syg) 50 ML SYRINGE IVP PRN (18:21)
[2019-04-09] MEDS ORDERED: Insulin DETEMIR 100 UNIT/ML X5UNITS SQ SCH (21:00)
[2019-04-10 04:03] LABS: White Blood Count 8.3 K/mcL (4.3-11.1)
[2019-04-10 04:04] LABS: Basophils # 0.1 K/mcL (0.0-0.2); Basophils % 0.8 %; Eosinophils # 0.3 K/mcL (0.0-0.6); Hematocrit 37.7 % (37.5-50.1); Hemoglobin 12.5 g/dL (12.9-16.9); Lymphocytes % 24.2 %; Mean Corpuscular HGB Conc 33.2 g/dL (31.6-35.5); Mean Corpuscular Hemoglobin 28.4 pg (28.0-33.3); Mean Corpuscular Volume 85.7 fL (83.0-100.0); Mean Platelet Volume 9.4 fL (9.4-12.4); Monocytes # 0.8 K/mcL (0.0-1.3); Nucleated Red Blood Cells 0.6 /100 WBC (0); Platelet Count 267 K/mcL (140-400); Red Cell Distribution Width 14.2 % (11.5-14.5)
[2019-04-10 04:26] LABS: BUN/Creatinine Ratio 11 (6-26); Blood Urea Nitrogen 12 mg/dL (8-23); Calcium 8.8 mg/dL (8.6-10.3); Carbon Dioxide 27 mEq/L (23-29); Chloride 106 mEq/L (98-107); Glucose 134 mg/dL (70-105); Magnesium 1.8 mg/dL (1.6-2.6); Osmolality,Calculated 290 (280-300); Potassium 3.5 mEq/L (3.5-5.1); Sodium 139 mEq/L (136-145); eGFR For African Americans > 60 (> 60); eGFR For Non-African Americans > 60 (> 60)
[2019-04-10 04:38] LABS: Thyroid Stimulating Hormone 1.882 mcIU/mL (0.340-5.600)
[2019-04-10] MEDS: Insulin LISPRO 300 UNITS/3 ML VIAL SQ SCH ×2 (08:27→12:30)
[2019-04-10] MEDS ORDERED: Lisinopril-HCTZ 20-12.5mg TABLET PO SCH (09:00)
[2019-04-10] MEDS ORDERED: Isosorbide MONOnitrate (24 HR) 30 MG TAB.ER.24H PO SCH (10:30)
[2019-04-10 11:42] VITALS: BP 175/56
[2019-04-10] MEDS ORDERED: Aspirin 81 MG TAB.CHEW PO SCH (18:00)
== END 2019-04-10 17:01 | disposition home or self-care (01) ==
LOC: 3BNU 14:58 → EMEROOARM 14:58 → SUATTDRO 17:52 → 3BNU 18:58
PROVIDERS: ADMIT Pharmacist; ATTEND Pharmacist